=== PATIENT | male | born 1980 | race American Indian/Alaskan Native ===

== ENCOUNTER 2018-10-26 18:23 | Emergency (ER) | payer OTHER ==
[2018-10-26 18:58] LABS: Absolute Lymphocytes (CBC) 3.4 K/uL (0.7-4.9); Basophils % 0.5 % (0-1.3); Eosinophils % 4.1 % (0-4.4); Hematocrit 50.4 % (39.6-49.0); Lymphocytes % 36.6 % (15.3-44.8); Monocytes % 6.8 % (3.3-12.3); RBC Red Blood Cell Count 6.01 M/uL (4.33-5.43)
[2018-10-26 19:06] LABS: Protime INR 0.94
--- NOTE | 2018-10-26 19:12 | RAD REPORT ---
EXAM DESCRIPTION: RAD - Chest Single View - 10/26/2018 6:50 pm CLINICAL HISTORY: CHEST PAIN Chest pain. COMPARISON: No comparisons FINDINGS: Portable technique limits examination quality. The lungs are underinflated but grossly clear. The heart is normal in size. No displaced fractures. IMPRESSION: Underinflated lungs.
[2018-10-26 19:14] LABS: Albumin 3.8 g/dL (3.4-5.0); Bilirubin Direct 0.1 mg/dL (0-0.2); Bilirubin Total 0.4 mg/dL (0.2-1.0); Magnesium 2.3 mg/dL (1.8-2.4); Potassium 3.6 mmol/L (3.5-5.1)
[2018-10-26] MEDS ORDERED: NA CHLORIDE 0.9% 1,000 ML ONE ×2 (19:41→23:11)
[2018-10-26] MEDS ORDERED: SUCRALFATE 1 GM TABLET ONE (19:47)
[2018-10-26] MEDS ORDERED: PANTOPRAZOLE 40 MG INJ ONE (19:48)
[2018-10-26] MEDS ORDERED: MORPHINE 4 MG/ML SYR ONE (23:11)
[2018-10-26] MEDS ORDERED: ONDANSETRON 4 MG/2 ML VIAL ONE (23:11)
--- NOTE | 2018-10-27 00:08 | ER ---
Nurse's Notes [facility] Name: Enrrique Sahni Age: 38 yrs Sex: Male : 1980 Arrival Date: 10/26/2018 Time: 18:25 Bed 17 Private MD: Diagnosis: Chest pain, unspecified Presentation: 10/26 18:25 Presenting complaint: Patient states: "Pain behind chest" since last night, pain is la1 sharp, non-radiating, hurts much worse with breathing and laying down. Transition of care: patient was not received from another setting of care. Onset of symptoms was October 26, 2018. Risk Assessment: Do you want to hurt yourself or someone else? Patient reports no desire to harm self or others. Initial Sepsis Screen: Does the patient meet any 2 criteria? No. Patient's initial sepsis screen is negative. Does the patient have a suspected source of infection? No. Patient's initial sepsis screen is negative. Care prior to arrival: None. 18:25 Method Of Arrival: Ambulatory la1 18:25 Acuity: ADEN 3 la1 Historical: - Allergies: 18:26 No Known Allergies; la1 - Home Meds: 18:26 atorvastatin 20 mg oral tab 1 tab once daily [Active]; Omeprazole Oral [Active]; la1 - PMHx: 18:26 High Cholesterol; GERD; la1 - PSHx: 18:26 None; la1 - Immunization history:: Adult Immunizations up to date. - Social history:: Smoking status: Patient/guardian denies using tobacco. - Ebola Screening: : No symptoms or risks identified at this time. Screenin:36 Abuse screen: Denies threats or abuse. Denies injuries from another. Nutritional aj screening: No deficits noted. Tuberculosis screening: No symptoms or risk factors identified. Fall Risk None identified. Assessment: 18:36 General: Appears in no apparent distress. comfortable, Behavior is cooperative, aj appropriate for age, anxious. Pain: Complains of pain in diaphragm, xyphoid area and left breast. Neuro: Level of Consciousness is awake, alert, obeys commands, Oriented to person, place, time, situation, Appropriate for age. Cardiovascular: Reports chest pain, Capillary refill < 3 seconds in bilateral fingers Patient's skin is warm and dry. Rhythm is regular. Respiratory: Airway is patent Respiratory effort is even, unlabored, Respiratory pattern is regular, symmetrical. Derm: Skin is intact, is healthy with good turgor, Skin is pink, warm \\T\\ dry. normal. 19:36 Reassessment: Patient appears in no apparent distress at this time. No changes from aj previously documented assessment. Patient and/or family updated on plan of care and expected duration. Pain level reassessed. Patient is alert, oriented x 3, equal unlabored respirations, skin warm/dry/pink. Patient reports pain continues. Provider notified and new orders given. 20:42 Reassessment: Patient appears in no apparent distress at this time. Patient is alert, ca1 oriented x 3, equal unlabored respirations, skin warm/dry/pink. For repeat Trop and EKG at 2130. 21:59 Reassessment: Patient appears in no apparent distress at this time. Patient and/or ca1 family updated on plan of care and expected duration. Pain level reassessed. Patient is alert, oriented x 3, equal unlabored respirations, skin warm/dry/pink. Rpt trop and EKG done. 22:50 Reassessment: Patient appears in no apparent distress at this time. Patient and/or ca1 family updated on plan of care and expected duration. Pain level reassessed. Patient is alert, oriented x 3, equal unlabored respirations, skin warm/dry/pink. 23:55 Reassessment: Patient appears in no apparent distress at this time. Patient is alert, ca1 oriented x 3, equal unlabored respirations, skin warm/dry/pink. 10/27 01:25 Reassessment: Patient appears in no apparent distress at this time. Patient is alert, ca1 oriented x 3, equal unlabored respirations, skin warm/dry/pink. 01:30 Reassessment: Patient appears in no apparent distress at this time. Patient and/or cc3 family updated on plan of care and expected duration. Pain level reassessed. Patient is alert, oriented x 3, equal unlabored respirations, skin warm/dry/pink. Received this male patient from ALENA Flower as a case of chest pain for admission, now patient doesn't complain of any pain. Patient on ER hold so charting continued in [facility]. With IV cannula gauge 20 at the right ACV with ongoing IVF of NS 1L at 125 mL/hr infusing well. Patient denies pain at this time. General: Appears in no apparent distress. comfortable, Behavior is calm, cooperative, appropriate for age. Pain: Denies pain. Neuro: Level of Consciousness is awake, alert, obeys commands, Oriented to person, place, time, situation, Appropriate for age. Cardiovascular: Capillary refill < 3 seconds Patient's skin is warm and dry. Rhythm is sinus rhythm. Respiratory: Airway is patent Respiratory effort is even, unlabored, Respiratory pattern is regular, symmetrical. GI: Abdomen is round non-distended. : No signs and/or symptoms were reported regarding the genitourinary system. EENT: No signs and/or symptoms were reported regarding the EENT system. Derm: Skin is intact, is healthy with good turgor, Skin is pink, warm \\T\\ dry. normal. Musculoskeletal: Circulation, motion, and sensation intact. Range of motion: intact in all extremities. Vital Signs: 10/26 18:26 BP 111 / 81; Pulse 71; Resp 16; Temp 97.2; Pulse Ox 98% on R/A; Weight 78.47 kg; Height la1 5 ft. 11 in. (180.34 cm); Pain 7/10; 19:36 BP 117 / 88; Pulse 71; Resp 20; Pulse Ox 99% on R/A; aj 20:15 BP 114 / 85; Pulse 68; Resp 19 S; Pulse Ox 100% on R/A; ca1 21:15 BP 113 / 85; Pulse 73; Resp 18 S; Pulse Ox 96% on R/A; ca1 22:08 BP 117 / 88; Pulse 71; Resp 18 S; Pulse Ox 99% on R/A; ca1 23:01 BP 121 / 81; Pulse 68; Resp 17 S; Pulse Ox 100% on R/A; ca1 10/27 00:13 BP 123 / 85; Pulse 71; Resp 18 S; Temp 97.5(O); Pulse Ox 100% ; ca1 01:15 BP 112 / 87; Pulse 61; Resp 16 S; Pulse Ox 96% on R/A; ca1 10/26 18:26 Body Mass Index 24.13 (78.47 kg, 180.34 cm) la1 ED Course: 10/26 18:25 Patient arrived in ED. mr 18:26 Triage completed. la1 18:27 Arm band placed on right wrist. la1 18:29 [facility]C [facility] snw 18:29 Mendy Romero MD is Attending Physician. snw 18:34 EKG done, by ED staff, reviewed by Mariam PEÑA. dh3 18:36 Randi Youssef, ALENA is Primary Nurse. aj 18:36 Patient has correct armband on for positive identification. Placed in gown. Bed in low aj position. Call light in reach. Side rails up X 1. Adult w/ patient. cardiac monitor on. Pulse ox on. NIBP on. 18:44 Initial lab(s) drawn, by me, sent to lab. Inserted saline lock: 20 gauge in right lt1 antecubital area, using aseptic technique. 18:50 XRAY Chest (1 view) In Process Unspecified. EDMS 19:19 Basic Metabolic Panel Sent. aj 19:19 CBC with Diff Sent. aj 21:56 Troponin (emerg Dept Use Only) Sent. lt1 10/27 00:05 Mendy Vargas MD is Hospitalizing Provider. snw 00:14 No provider procedures requiring assistance completed. Patient admitted, IV remains in ca1 place. 01:26 Report given to Shayy Antony RN. ca1 07:21 Electronic Warfare Officer consult called into the answering service as requested by Dr. Hartmann . eb Administered Medications: 10/26 19:35 Drug: CarafATE 1 grams Route: PO; aj 23:08 Follow up: Response: No adverse reaction ca1 19:35 Drug: ProTONIX 40 mg Route: IVP; Site: right antecubital; aj 23:08 Follow up: Response: No adverse reaction ca1 19:36 Drug: NS 0.9% 1000 ml Route: IV; Rate: 1000 ml; Site: right antecubital; aj 20:36 Follow up: Response: No adverse reaction; IV Status: Completed infusion ca1 22:55 Drug: NS 0.9% 1000 ml Route: IV; Rate: 125 ml/hr; Site: right antecubital; ca1 10/27 00:10 Follow up: IV Status: Infusion continued upon admission ca1 10/26 22:56 Drug: Zofran 4 mg Route: IVP; Site: right antecubital; ca1 10/27 00:08 Follow up: Response: No adverse reaction ca1 07/06 22:59 Drug: morphine 4 mg Route: IVP; Site: right antecubital; ca1 10/27 00:09 Follow up: Response: No adverse reaction ca1 Outcome: 00:05 Decision to Hospitalize by Provider. snw 11:46 Patient left the ED. iw Signatures: Dispatcher [employer] EDRandi Corona, RN RN Mariam Beatty, COLLAR RUNNER-C COLLAR RUNNER-Csnw Linsey Fitzgerald Camille Gill, RN ALENA Saurabh Orlando RN RN la1 Leyla Garcia 3 Kim Nieto Charlene 3 Ching Jenkins RN RN ca1 Rodriguez, Pooja lt1 Corrections: (The following items were deleted from the chart) 10/26 22:00 21:59 Reassessment: Patient appears in no apparent distress at this time. Patient ca1 and/or family updated on plan of care and expected duration. Pain level reassessed. Patient is alert, oriented x 3, equal unlabored respirations, skin warm/dry/pink. ca1 10/27 00:11 00:10 Response: No adverse reaction; IV Status: Completed infusion ca1 ca1 01:26 01:15 BP 112 / 87; Pulse 61bpm; Resp 16bpm; Pulse Ox 96% RA; ca1 ca1
--- NOTE | 2018-10-27 00:09 | EDPHYS ---
Physician Documentation [facility] Name: Enrrique Sahni Age: 38 yrs Sex: Male : 1980 Arrival Date: 10/26/2018 Time: 18:25 Bed 17 Private MD: ED Physician Mendy Romero HPI: 10/26 18:53 This 38 yrs old Male presents to ER via Ambulatory with complaints of snw Chest Pain. 18:53 Onset: The symptoms/episode began/occurred suddenly, 1 day(s) ago, and became snw persistent. Associated signs and symptoms: The patient has no apparent associated signs or symptoms. The patient has not experienced similar symptoms in the past. sees Dr. Parada in [facility]. Father with early heart disease. Historical: - Allergies: 18:26 No Known Allergies; la1 - Home Meds: 18:26 atorvastatin 20 mg oral tab 1 tab once daily [Active]; Omeprazole Oral [Active]; la1 - PMHx: 18:26 High Cholesterol; GERD; la1 - PSHx: 18:26 None; la1 - Immunization history:: Adult Immunizations up to date. - Social history:: Smoking status: Patient/guardian denies using tobacco. - Ebola Screening: : No symptoms or risks identified at this time. ROS: 18:51 Constitutional: Negative for fever, chills, and weight loss, Eyes: Negative for injury, snw pain, redness, and discharge, ENT: Negative for injury, pain, and discharge, Neck: Negative for injury, pain, and swelling, Respiratory: Negative for shortness of breath, cough, wheezing, and pleuritic chest pain, Abdomen/GI: Negative for abdominal pain, nausea, vomiting, diarrhea, and constipation, Back: Negative for injury and pain, : Negative for injury, bleeding, discharge, and swelling, MS/Extremity: Negative for injury and deformity, Skin: Negative for injury, rash, and discoloration, Neuro: Negative for headache, weakness, numbness, tingling, and seizure, Psych: Negative for depression, anxiety, suicide ideation, homicidal ideation, and hallucinations. 18:51 Cardiovascular: Positive for chest pain, of the left breast. Exam: 18:51 Constitutional: This is a well developed, well nourished patient who is awake, alert, snw and anxious Head/Face: Normocephalic, atraumatic. Eyes: Pupils equal round and reactive to light, extra-ocular motions intact. Lids and lashes normal. Conjunctiva and sclera are non-icteric and not injected. Cornea within normal limits. Periorbital areas with no swelling, redness, or edema. ENT: Nares patent. No nasal discharge, no septal abnormalities noted. Tympanic membranes are normal and external auditory canals are clear. Oropharynx with no redness, swelling, or masses, exudates, or evidence of obstruction, uvula midline. Mucous membranes moist. Neck: Trachea midline, no thyromegaly or masses palpated, and no cervical lymphadenopathy. Supple, full range of motion without nuchal rigidity, or vertebral point tenderness. No Meningismus. Chest/axilla: Normal chest wall appearance and motion. Nontender with no deformity. No lesions are appreciated. Cardiovascular: Regular rate and rhythm with a normal S1 and S2. No gallops, murmurs, or rubs. Normal PMI, no JVD. No pulse deficits. Respiratory: Lungs have equal breath sounds bilaterally, clear to auscultation and percussion. No rales, rhonchi or wheezes noted. No increased work of breathing, no retractions or nasal flaring. Back: No spinal tenderness. No costovertebral tenderness. Full range of motion. Skin: Warm, dry with normal turgor. Normal color with no rashes, no lesions, and no evidence of cellulitis. MS/ Extremity: Pulses equal, no cyanosis. Neurovascular intact. Full, normal range of motion. Neuro: Awake and alert, GCS 15, oriented to person, place, time, and situation. Cranial nerves II-XII grossly intact. Motor strength 5/5 in all extremities. Sensory grossly intact. Cerebellar exam normal. Normal gait. Psych: Awake, alert, with orientation to person, place and time. Behavior, mood, and affect are within normal limits. 18:51 Abdomen/GI: Inspection: abdomen appears normal, Bowel sounds: hyperactive, in all quadrants, Palpation: abdomen is soft and non-tender. Vital Signs: 18:26 BP 111 / 81; Pulse 71; Resp 16; Temp 97.2; Pulse Ox 98% on R/A; Weight 78.47 kg; Height la1 5 ft. 11 in. (180.34 cm); Pain 7/10; 19:36 BP 117 / 88; Pulse 71; Resp 20; Pulse Ox 99% on R/A; aj 20:15 BP 114 / 85; Pulse 68; Resp 19 S; Pulse Ox 100% on R/A; ca1 21:15 BP 113 / 85; Pulse 73; Resp 18 S; Pulse Ox 96% on R/A; ca1 22:08 BP 117 / 88; Pulse 71; Resp 18 S; Pulse Ox 99% on R/A; ca1 23:01 BP 121 / 81; Pulse 68; Resp 17 S; Pulse Ox 100% on R/A; ca1 10/27 00:13 BP 123 / 85; Pulse 71; Resp 18 S; Temp 97.5(O); Pulse Ox 100% ; ca1 01:15 BP 112 / 87; Pulse 61; Resp 16 S; Pulse Ox 96% on R/A; ca1 10/26 18:26 Body Mass Index 24.13 (78.47 kg, 180.34 cm) la1 MDM: 10/26 18:33 Patient medically screened. snw 10/27 00:06 Data reviewed: vital signs, nurses notes. Data interpreted: Pulse oximetry: on room air snw is 99 %. Interpretation: normal. Counseling: I had a detailed discussion with the patient and/or guardian regarding: the historical points, exam findings, and any diagnostic results supporting the discharge/admit diagnosis, lab results, radiology results, the need for further work-up and treatment in the hospital. Physician consultation: Mendy Vargas MD was called at 00:06, was contacted at 00:06, regarding admission, to the telemetry unit. 00:19 Medication response: continued pain at 2100, repeat cardiac enzymes, EKG negative. Pt snw continues with pain per report. Morphine given at 2300. Pt with continued report of pain. Dr. Vargas called at [phone] for admission for obs.. 10/26 18:29 Order name: Basic Metabolic Panel; Complete Time: 19:19 snw 10/26 18:29 Order name: CBC with Diff; Complete Time: 19:19 snw 10/26 18:29 Order name: LFT's; Complete Time: 19:18 snw 10/26 18:29 Order name: Magnesium; Complete Time: 19:18 snw 10/26 18:29 Order name: NT PRO-BNP; Complete Time: 19:18 snw 10/26 18:29 Order name: PT-INR; Complete Time: 19:07 snw 10/26 18:29 Order name: Troponin (emerg Dept Use Only); Complete Time: 19:18 snw 10/26 18:29 Order name: XRAY Chest (1 view); Complete Time: 19:18 snw 10/26 18:29 Order name: DD; Complete Time: 19:07 snw 10/26 18:30 Order name: Basic Metabolic Panel; Complete Time: 19:18 EDMS 10/26 18:31 Order name: CBC with Automated Diff; Complete Time: 19:05 EDMS 10/26 21:39 Order name: Troponin (emerg Dept Use Only); Complete Time: 22:22 lt1 10/27 06:34 Order name: Troponin I; Complete Time: 15:43 EDMS 10/27 06:34 Order name: Lipid Profile; Complete Time: 15:43 EDMS 10/26 18:29 Order name: EKG; Complete Time: 18:32 snw 10/26 18:29 Order name: Cardiac monitoring; Complete Time: 18:46 snw 10/26 18:29 Order name: EKG - Nurse/Tech; Complete Time: 18:39 snw 10/26 18:29 Order name: IV Saline Lock; Complete Time: 18:45 snw 10/26 18:29 Order name: Labs collected and sent; Complete Time: 18:45 snw 10/26 18:29 Order name: O2 Per Protocol; Complete Time: 18:45 snw 10/26 18:29 Order name: O2 Sat Monitoring; Complete Time: 18:45 snw 10/26 19:20 Order name: Repeat Cardiac Enzymes at: 2130; Complete Time: 21:56 snw 10/26 19:20 Order name: EKG: at 2130; Complete Time: 19:24 snw Administered Medications: 10/26 19:35 Drug: CarafATE 1 grams Route: PO; aj 23:08 Follow up: Response: No adverse reaction ca1 19:35 Drug: ProTONIX 40 mg Route: IVP; Site: right antecubital; aj 23:08 Follow up: Response: No adverse reaction ca1 19:36 Drug: NS 0.9% 1000 ml Route: IV; Rate: 1000 ml; Site: right antecubital; aj 20:36 Follow up: Response: No adverse reaction; IV Status: Completed infusion ca1 22:55 Drug: NS 0.9% 1000 ml Route: IV; Rate: 125 ml/hr; Site: right antecubital; ca1 10/27 00:10 Follow up: IV Status: Infusion continued upon admission ca1 10/26 22:56 Drug: Zofran 4 mg Route: IVP; Site: right antecubital; ca1 10/27 00:08 Follow up: Response: No adverse reaction ca1 10/26 22:59 Drug: morphine 4 mg Route: IVP; Site: right antecubital; ca1 10/27 00:09 Follow up: Response: No adverse reaction ca1 Disposition: 10/27/18 00:05 Hospitalization ordered by Mendy Vargas for Observation. Preliminary diagnosis is Chest pain, unspecified. - Bed requested for [facility] ER HOLD. - Status is Observation. iw - Condition is Stable. - Problem is new. - Symptoms are unchanged. UTI on Admission? No Addendum: 10/31/2018 02:10 Co-signature as Attending Physician, Mendy Romero MD. m a2 Signatures: Dispatcher [employer] EDMS Josseline Jeronimo RN Randi Mcarthur RN Mariam Johnson, PRINTING MACHINE OPERATOR-C PRINTING MACHINE OPERATOR-Csnw Camille Gill RN RN iw Saurabh Orlando RN RN la1 Mendy Romero MD MD ma2 Ching Jenkins RN RN ca1 Corrections: (The following items were deleted from the chart) 10/27 00:25 00:05 Hospitalization Ordered by Mendy Vargas MD for Observation. Preliminary mw diagnosis is Chest pain, unspecified. Bed requested for Telemetry/MedSurg (observation). Status is Observation. Condition is Stable. Problem is new. Symptoms are unchanged. UTI on Admission? No. snw 11:46 00:25 10/27/2018 00:05 Hospitalization Ordered by Mendy Vargas MD for Observation. iw Preliminary diagnosis is Chest pain, unspecified. Bed requested for [facility] ER HOLD. Status is Observation. Condition is Stable. Problem is new. Symptoms are unchanged. UTI on Admission? No. mw
[2018-10-27] MEDS ORDERED: MORPHINE 4 MG/ML SYR IV PRN (00:58)
[2018-10-27] MEDS ORDERED: ALPRAZOLAM 0.25 MG TABLET PO PRN (00:58)
[2018-10-27] MEDS ORDERED: ACETAMINOPHEN 500 MG TAB PO PRN (00:58)
[2018-10-27 04:03] VITALS: BMI 24.1
[2018-10-27 04:34] VITALS: O2SAT 99
[2018-10-27 04:37] VITALS: TEMP 97.6
[2018-10-27] MEDS ORDERED: METOPROLOL TAR 50 MG TAB PO SCH (06:00)
[2018-10-27 06:04] VITALS: BP 105/83
[2018-10-27] MEDS ORDERED: METOPROLOL TAR 25 MG TAB ONE (06:22)
[2018-10-27 06:34] LABS: HDL Cholesterol 30 mg/dL (40-60); LDL Cholesterol, Calculated 21 (<130); Troponin I < 0.02 ng/mL (0.0-0.045)
--- NOTE | 2018-10-27 08:43 | EKG ---
Test Date: 2018-10-26 Test Time: 21:45:17 Sr. Logistics Analyst: LMT MEASUREMENT RESULTS: Intervals: Rate: 69 MI: 132 QRSD: 90 QT: 384 QTc: 411 [place]: P: 24 MI: 132 QRS: 54 T: 54 INTERPRETIVE STATEMENTS: Normal sinus rhythm Normal ECG Compared to ECG 10/26/2018 18:34:21 No significant changes Electronically Signed On 10-27-18 08:41:15 CDT by Chet Alvarez
--- NOTE | 2018-10-27 08:44 | EKG ---
Test Date: 2018-10-26 Test Time: 18:34:21 Cherry Pitter: REYES MEASUREMENT RESULTS: Intervals: Rate: 72 WI: 148 QRSD: 92 QT: 380 QTc: 416 [place]: P: 46 WI: 148 QRS: 57 T: 53 INTERPRETIVE STATEMENTS: Normal sinus rhythm Possible Left atrial enlargement Borderline ECG No previous ECG available for comparison Electronically Signed On 10-27-18 08:42:21 CDT by Chet Alvarez
[2018-10-27] MEDS ORDERED: ASPIRIN 325 MG TAB ONE (08:59)
[2018-10-27] MEDS ORDERED: ENOXAPARIN 40 MG/0.4 ML SQ ONE (09:00)
[2018-10-27] MEDS ORDERED: ASPIRIN 325 MG TAB PO SCH (09:00)
[2018-10-27] MEDS ORDERED: ENOXAPARIN 40 MG/0.4 ML SQ SCH (09:00)
--- NOTE | 2018-10-27 10:12 | P.DS ---
Admission Date: 10/27/18 Discharge Date: 10/27/18 Primary Care Provider: None(From [place], [place]) Disposition: ROUTINE DISCHARGE Discharge Condition: GOOD Reason for Admission: Chest pain Consultations: Cardiology-Dr. Alvarez Procedures: Chest x-ray: Underinflated lungs otherwise unremarkable Medical problem list: Chest pain, atypical, likely pleuritic in nature Mixed hyperlipidemia GERD Brief History of Present Illness: 38-year-old [place] male presented to the emergency room with chest pain. Patient with recent travel. Patient was admitted for further observation. Initial cardiac enzymes unremarkable. No significant EKG changes noted. Hospital Course: Patient presented with chest pain. Cardiac enzymes x3 unremarkable. No significant EKG changes noted. Patient seen and evaluated by Cardiology. No cardiac intervention required at this time. Cardiology recommends discharge and for the patient to follow up as an outpatient within 1-2 weeks. Patient will require cardiac stress test and echocardiogram as an outpatient. Patient may follow up with cardiology to further address. Cardiology suspects pleuritic chest pain. Patient may take ibuprofen 400 mg 3 times a day as needed for pain. Patient may continue with his aspirin 81 mg daily. Will provide incentive spirometer. Patient with hyperlipidemia. Patient takes Lipitor at home. Lipid panel reviewed. Triglycerides slightly elevated. Recommend [place] [employer] diet. Recommend fish oil 1000 mg twice daily. Patient may continue with Lipitor 20 mg daily. Recommend repeat lab in 4-6 weeks to monitor his progress. Patient with history of GERD. Patient may continue with Prilosec 40 mg daily. Vital Signs/Physical Exam: Temp Pulse Resp BP Pulse Ox 97.6 F 75 18 105/83 100 10/27/18 04:00 10/27/18 06:02 10/27/18 06:02 10/27/18 06:02 10/27/18 06:02 General: Alert, In no apparent distress, Oriented x3, Cooperative HEENT: Atraumatic Neck: Supple Respiratory: Clear to auscultation bilaterally, Normal air movement Cardiovascular: Normal pulses, Regular rate/rhythm Gastrointestinal: Normal bowel sounds, Soft and benign, Non-distended, No tenderness, No masses, No rebound, No guarding Musculoskeletal: No erythema, No tenderness, No warmth Neurological: Normal speech, Normal strength at 5/5 x4 extr, Normal tone, Normal affect Laboratory Data at Discharge: WBC 9.3 K/uL (4.3-10.9) 10/26/18 18:43 Hgb 17.0 g/dL (13.6-17.9) 10/26/18 18:43 Hct 50.4 % (39.6-49.0) H 10/26/18 18:43 Plt Count 206 K/uL (152-406) 10/26/18 18:43 PT 11.1 SECONDS (9.5-12.5) 10/26/18 18:43 INR 0.94 10/26/18 18:43 Sodium 139 mmol/L (136-145) 10/26/18 18:43 Potassium 3.6 mmol/L (3.5-5.1) 10/26/18 18:43 BUN 14 mg/dL (7-18) 10/26/18 18:43 Creatinine 1.04 mg/dL (0.55-1.3) 10/26/18 18:43 Glucose 119 mg/dL (74-106) H 10/26/18 18:43 Magnesium 2.3 mg/dL (1.8-2.4) 10/26/18 18:43 Total Bilirubin 0.4 mg/dL (0.2-1.0) 10/26/18 18:43 AST 19 U/L (15-37) 10/26/18 18:43 ALT 38 U/L (12-78) 10/26/18 18:43 Alkaline Phosphatase 52 U/L (45-117) 10/26/18 18:43 Troponin I < 0.02 ng/mL (0.0-0.045) 10/27/18 06:00 Triglycerides 395 mg/dL (<150) H 10/27/18 06:00 Cholesterol 130 mg/dL (<200) 10/27/18 06:00 HDL Cholesterol 30 mg/dL (40-60) L 10/27/18 06:00 Cholesterol/HDL Ratio 4.33 10/27/18 06:00 Home Medications: Aspirin [Adult Aspirin Regimen] 81 mg PO DAILY 10/27/18 Atorvastatin Calcium 20 mg PO DAILY 10/27/18 Docosahexanoic AC/Epa [Fish Oil 1,000 MG CAP] 1 cap PO BID #60 cap 10/27/18 Omeprazole [Prilosec] 40 mg PO DAILY 10/27/18 New Medications: Docosahexanoic AC/Epa [Fish Oil 1,000 MG CAP] 1 cap PO BID #60 cap Patient Discharge Instructions: 1. Recommend follow up with his PCP in 1 week. 2. Patient presented with chest pain. Cardiac enzymes x3 unremarkable. No significant EKG changes noted. Patient seen and evaluated by Cardiology. No cardiac intervention required at this time. Cardiology recommends discharge and for the patient to follow up as an outpatient within 1-2 weeks. Patient will require cardiac stress test and echocardiogram as an outpatient. Patient may follow up with cardiology to further address. Cardiology suspects pleuritic chest pain. Patient may take ibuprofen 400 mg 3 times a day as needed for pain. Patient may continue with his aspirin 81 mg daily. Will provide incentive spirometer. 3. Patient with hyperlipidemia. Patient takes Lipitor at home. Lipid panel reviewed. Triglycerides slightly elevated. Recommend [place] [employer] diet. Recommend fish oil 1000 mg twice daily. Patient may continue with Lipitor 20 mg daily. Recommend repeat lab in 4-6 weeks to monitor his progress. 4. Patient with history of GERD. Patient may continue with Prilosec 40 mg daily. Diet: AHA Activity: Ad marzena Time spent managing pt's care (in minutes): 55
--- NOTE | 2018-10-27 15:42 | CON ---
Date of Consultation: 10/27/2018 The patient was admitted to Dr. Hartmann's service on 10/27/2018. I saw the patient on 10/27/2018. Reason For Consultation: Chest pain. History Of Present Illness: The patient is a 38-year-old male without any past cardiac histor y. He has a history of dyslipidemia and gastroesophageal reflux disease. His dad at 49 from coronary artery disease. Apparently since last , which is about 3-4 days ago, he has be en having a chest pain over the left lateral wall of his chest, typically with inspiration. It got m uch worse yesterday when he took a deep breath and would drive into [place] and decided to com e to the emergency room for evaluation. His pain was nonexertional. It did not radiate. It was not associated with nausea, vomiting, diaphoresis, PND, orthopnea, pedal edema, palpitations, or syncope . He denied any trauma. Denied any fever or chills. By the time I saw him, he has already ruled ou t for an OK. Past Medical History: As stated above. Allergies: NONE. Review of Systems: Negative. Social History: Negative for tobacco. Family History: Positive for heart disease. Medications: At home include aspirin, Lipitor, and Prilosec. Physical Examination: General: He appeared to be anxious but in no acute distress. Vital Signs: Stable. He was afebrile. He was in a sinus rhythm. HEENT: Negative. Neck: Supple without any bruit, lymphadenopathy, JVD, or thyromegaly. Chest: Clear to auscultation and percussion. Cardiac: Revealed a regular rhythm and rate. No murmurs, gallops, or rubs. Abdomen: Benign. Extremities: Revealed no clubbing, cyanosis, or edema. Diagnostic Data: His EKG was normal. Chest x-ray was normal. Troponin is negative. His triglyceri de was 395, HDL was 30, LDL could not be calculated. His cholesterol was 130. Impression And Plan: This is a gentleman with dyslipidemia that is significant, strong family histor y of heart disease, gastroesophageal reflux disease. He has symptoms that sounds more pleuritic than cardiac in nature. He has ruled out for an OK. His EKG, chest x-ray, and labs were normal otherwis e. I feel comfortable with him going home today. Because of his chest pain, dyslipidemia, and famil y history that is pretty strong, I recommend we do an echocardiogram and a stress test as an outpatie nt. I will make arrangements for that. The case was discussed with Dr. Hartmann. The patient underst ands the plans. Nonsteroidal anti-inflammatory agent may be appropriate for his pleurisy at this poi nt. ETTA/RAN Voice ID: [id number] Report ID: [id number]
[2018-10-27] MEDS ORDERED: ATORVASTATIN 40 MG TAB PO SCH (21:00)
== END 2018-10-27 11:46 | disposition home or self-care (01) ==
LOC: ER 18:23 → ERHOLD 10-27 00:25 → UNDOADMOB 10-27 00:25 → ER 10-27 11:46
DX: R07.9 Chest pain, unspecified (principal); E78.5 Hyperlipidemia, unspecified; K21.9 Gastro-esophageal reflux disease without esophagitis
CPT/HCPCS: 36415; 71045; 80048; 80076; 83735; 83880; 84484; 85025; 85379; 85610; 93005; 96361; 96374; 96375; 99284; C9113; J2405; J7030

== ENCOUNTER 2019-09-17 17:02 | Observation (INO) | payer OTHER, SELFPAY ==
[2019-09-17] MEDS ORDERED: KETOROLAC 30 MG/ML INJ ONE (18:39)
[2019-09-17 19:17] LABS: ALT/SGPT 48 U/L (12-78); AST/SGOT 22 U/L (15-37); Absolute Lymphocytes (CBC) 2.9 K/uL (0.7-4.9); Alkaline Phosphatase 55 U/L (45-117); BUN Blood Urea Nitrogen 16 mg/dL (7-18); Basophils % 0.3 % (0-1.3); Bicarbonate 30 mmol/L (21-32); Bilirubin Direct < 0.1 mg/dL (0-0.2); Bilirubin Total 0.4 mg/dL (0.2-1.0); Glucose Level 95 mg/dL (74-106); Hematocrit 51.4 % (39.6-49.0); Lymphocytes % 18.6 % (15.3-44.8); MPV 10.2 fL (7.6-11.3); Magnesium 2.2 mg/dL (1.8-2.4); NT PRO-BNP 14 pg/mL (<125); Protein, Total 7.5 g/dL (6.4-8.2); RBC Red Blood Cell Count 6.07 M/uL (4.33-5.43); Sodium Level 139 mmol/L (136-145); Troponin (Emerg Dept Use Only) < 0.02 ng/mL (0.0-0.045)
[2019-09-17 19:19] LABS: Protime INR 0.99
--- NOTE | 2019-09-17 19:52 | RAD REPORT ---
EXAM DESCRIPTION: RAD - Chest Single View - 09/17/2019 7:17 pm CLINICAL HISTORY: CHEST PAIN COMPARISON: Portable October 2018 TECHNIQUE: AP portable chest image was obtained 09/17/2019 7:17 pm . FINDINGS: Lung volumes are low. Hazy lung parenchymal opacities are present which could be low lung volume atelectasis. No dense consolidation. Elevated left hemidiaphragm again noted. Heart and vascul ature are normal. No measurable pleural effusion and no pneumothorax. No acute bony abnormality seen. No acute aortic findings suspected. IMPRESSION: No dense consolidation or mass. Mild prominence of the lung parenchyma and central vasculature may all be volume related. Minimal inf iltrate or edema changes are possible.
[2019-09-17] MEDS ORDERED: ASPIRIN 81 MG CHEWABLE TABLET ONE (21:25)
--- NOTE | 2019-09-17 21:44 | P.HP ---
Certification for Inpatient Patient admitted to: Observation With expected LOS: <2 Midnights Practitioner: I am a practitioner with admitting privileges, knowledge of patient current condition, hospital course, and medical plan of care. Services: Services provided to patient in accordance with Admission requirements found in Title 42 Section 412.3 of the Code of Federal Regulations Patient History Date of Service: 09/17/19 Reason for admission: Chest pain History of Present Illness: 39-year-old gentleman with a history of acid reflux and hyperlipidemia presented emergency department with a complaint of chest pain of onset yesterday. Patient described intermittent chest pain, located in the sternal area, nonradiating, not related to exertion, worse with leaning forward, no relieving factors, associated with palpitation. Patient denies any cough or shortness of breath. His EKG in the emergency department demonstrated sinus tachycardia. Initial troponin is negative. Chest x-ray demonstrate a hazy appearance which could be secondary to atelectasis. The patient has a significant family history of coronary artery disease. His dad from a heart attack at the age of 49. He was here 1 year ago for chest pain, had a stress test and echocardiogram done as an outpatient which per patient were reported as normal. He states he has been diagnosed obstructive sleep apnea and uses CPAP during sleep. Allergies No Known Allergies Allergy (Unverified 10/27/18 01:44) Home Medications: Aspirin [Adult Aspirin Regimen] 81 mg PO DAILY 10/27/18 Atorvastatin Calcium 20 mg PO DAILY 10/27/18 - Past Medical/Surgical History Diabetic: No -: hyperlipidemia -: acid reflux -: Obstructive sleep apnea -: None - Family History Father -: Heart disease Notes: of heart attack Mother Notes: hyperlipidemia - Social History Smoking Status: Never smoker Alcohol use: No CD- Drugs: No Caffeine use: No Review of Systems Other: Except as documented, all other systems reviewed and negative. Physical Examination - Physical Exam General: Alert, In no apparent distress, Oriented x3 HEENT: Mucous membr. moist/pink, Sclerae nonicteric Neck: Supple, JVD not distended Respiratory: Clear to auscultation bilaterally, Normal air movement Cardiovascular: No edema, Regular rate/rhythm, Normal S1 S2, No murmurs Capillary refill: <2 Seconds Gastrointestinal: Normal bowel sounds, Soft and benign, Non-distended, No tenderness Musculoskeletal: No swelling, No erythema Integumentary: No rashes Neurological: Normal speech, Normal strength at 5/5 x4 extr - Studies Laboratory Data (last 24 hrs) 09/17/19 18:40: PT 11.7, INR 0.99 09/17/19 18:40: WBC 15.6 H, Hgb 17.3, Hct 51.4 H, Plt Count 206 09/17/19 18:40: Sodium 139, Potassium 4.0, BUN 16, Creatinine 1.18, Glucose 95, Magnesium 2.2, Total Bilirubin 0.4, AST 22, ALT 48, Alkaline Phosphatase 55 Assessment and Plan - Problems (Diagnosis) (1) Chest pain Current Visit: Yes Status: Acute (2) Sinus tachycardia Current Visit: Yes Status: Acute - Plan Place under observation. Telemetry Trend troponin. Obtain EKG Beta-serjio, aspirin, lipitor. NTG p.r.n. - Advance Directives Does patient have a Living Will: No Does patient have a Durable POA for Healthcare: No
[2019-09-17 22:45] VITALS: BMI 25.5
[2019-09-17] MEDS ORDERED: NITROGLYCERIN 0.4 MG/TAB SL PRN (22:59)
[2019-09-17 23:43] LABS: HDL Cholesterol 29 mg/dL (40-60); LDL Cholesterol, Calculated 51 (<130); Troponin I < 0.02 ng/mL (0.0-0.045)
[2019-09-18 04:45] VITALS: O2SAT 98
[2019-09-18 07:34] LABS: Potassium 3.8 mmol/L (3.5-5.1)
[2019-09-18] MEDS ORDERED: ENOXAPARIN 40 MG/0.4 ML SQ SCH (09:00)
[2019-09-18] MEDS ORDERED: ASPIRIN EC 81 MG TAB PO SCH (09:00)
[2019-09-18] MEDS ORDERED: METOPROLOL TAR 25 MG TAB PO SCH (09:00)
--- NOTE | 2019-09-18 12:07 | RAD REPORT ---
EXAM DESCRIPTION: NM - Rest Stress Cardiac Imaging - 09/18/2019 11:58 am CLINICAL HISTORY: Chest pain. COMPARISON: None. TECHNIQUE: The patient was administered approximately 10mCi of Tc 99m Sestamibi prior to resting SPE CT imaging of the heart. The patient was then administered approximately 30 mCi of Tc 99m Sestamibi f ollowing exercise or pharmacologic stress. Multiplanar SPECT images were reviewed. FINDINGS: There is uniformity of radiotracer uptake involving the entire left ventricular myocardiu m on rest and stress images. The left ventricular ejection fraction equals 49% IMPRESSION: Negative for a myocardial perfusion defect
[2019-09-18] MEDS ORDERED: SODIUM CHL 0.9% 1000 ML BAG ONE (12:17)
[2019-09-18 15:44] LABS: Absolute Lymphocytes (CBC) 3.1 K/uL (0.7-4.9); Basophils % 0.3 % (0-1.3); Hematocrit 47.6 % (39.6-49.0); Lymphocytes % 32.2 % (15.3-44.8); MPV 9.8 fL (7.6-11.3); RBC Red Blood Cell Count 5.72 M/uL (4.33-5.43)
--- NOTE | 2019-09-18 18:06 | CON ---
Date of Consultation: 09/18/2019 Reason For Consultation: Chest pain. History Of Present Illness: This is a 39-year-old male with a very strong history of coronary artery disease, father of heart attack in mid 40s, otherwise no other medical problems, presented with chest pain. It is in the lower portion of the chest in the sternal area. No radiation. Not relate d to exertion. No shortness of breath. No nausea, vomiting, or diarrhea. No other complaints. Berna n is not related to exertion. There is no fever. No cough. Past Medical History: None. Medications: None. Allergies: NO KNOWN DRUG ALLERGIES. Social History: He does not smoke or drink. Does not use any drugs. Family History: No premature coronary artery disease or cancer. Review of Systems: All systems were reviewed and they were negative except what mentioned in the HPI. Physical Examination: Vital Signs: Temperature is 97.9, pulse is 88, breathing at 18, blood pressure 136/77, saturating 96 % on room air. General: Pleasant young male, in no distress. Head and Neck: Pupils are equal, react to light. Intact eye movements. No JVD. No cervical lympha denopathy. Neck is supple. Thyroid is not enlarged. Lungs: Clear to auscultation bilaterally. No rhonchi, rales, or crackles. No accessory muscle use. Heart: Regular rate and rhythm. No extra sounds. Abdomen: Soft, nontender. Bowel sounds positive. No organomegaly. No masses or hernia. No rigidi ty or rebound. Extremities: No edema, clubbing, or cyanosis. Intact pulses. Skin: No rash. Neurologic: Alert, awake, oriented x3. No acute focal deficits appreciated. Investigations: Troponins are negative. Labs were reviewed and they were within normal. EKGs, no a cute abnormalities. Assessment And Plan: Chest pain. Strong family history. I agree with stress test and further plan accordingly. Meanwhile, use nitroglycerin sublingually as needed and a baby aspirin 81 mg daily. Thank you for the consultation. /RAN Voice ID: [id number] Report ID: [id number]
[2019-09-18 18:16] VITALS: BP 120/79; TEMP 97.4
--- NOTE | 2019-09-18 20:18 | P.DS ---
Admission Date: 09/17/19 Discharge Date: 09/18/19 Disposition: ROUTINE DISCHARGE Reason for Admission: Chest pain Consultations: Cardiology Procedures: None - Problems (1) Chest pain Status: Acute (2) Sinus tachycardia Status: Acute Brief History of Present Illness: 39-year-old gentleman with a history of acid reflux and hyperlipidemia presented emergency department with a complaint of chest pain of onset yesterday. Patient described intermittent chest pain, located in the sternal area, nonradiating, not related to exertion, worse with leaning forward, no relieving factors, associated with palpitation. Patient denies any cough or shortness of breath. His EKG in the emergency department demonstrated sinus tachycardia. Initial troponin is negative. Chest x-ray demonstrate a hazy appearance which could be secondary to atelectasis. The patient has a significant family history of coronary artery disease. His dad from a heart attack at the age of 49. He was here 1 year ago for chest pain, had a stress test and echocardiogram done as an outpatient which per patient were reported as normal. He states he has been diagnosed obstructive sleep apnea and uses CPAP during sleep. Hospital Course: Patient placed under observation, troponin trended came back negative. He was evaluated by cardiology-Dr. Hugo, exercise stress test with myocardial imaging was performed which did not show any perfusion defect to suggest ischemia. He was placed on aspirin. Acute coronary syndrome ruled out. Patient is deemed clinically stable for discharge. Vital Signs/Physical Exam: Temp Pulse Resp BP Pulse Ox 97.4 F 84 17 120/79 95 09/18/19 16:00 09/18/19 16:00 09/18/19 16:00 09/18/19 16:09/18/19 16:00 General: Alert, In no apparent distress, Oriented x3 HEENT: Mucous membr. moist/pink Neck: Supple, JVD not distended Respiratory: Clear to auscultation bilaterally Cardiovascular: No edema, Regular rate/rhythm, Normal S1 S2 Gastrointestinal: Normal bowel sounds, Soft and benign, No tenderness Musculoskeletal: No swelling, No tenderness Integumentary: No rashes Neurological: Normal speech, Normal strength at 5/5 x4 extr Laboratory Data at Discharge: WBC 9.6 K/uL (4.3-10.9) D 09/18/19 15:23 Hgb 16.2 g/dL (13.6-17.9) 09/18/19 15:23 Hct 47.6 % (39.6-49.0) 09/18/19 15:23 Plt Count 200 K/uL (152-406) 09/18/19 15:23 PT 11.7 SECONDS (9.5-12.5) 09/17/19 18:40 INR 0.99 09/17/19 18:40 Sodium 142 mmol/L (136-145) 09/18/19 03:18 Potassium 3.8 mmol/L (3.5-5.1) 09/18/19 03:18 BUN 18 mg/dL (7-18) 09/18/19 03:18 Creatinine 1.22 mg/dL (0.55-1.3) 09/18/19 03:18 Glucose 97 mg/dL (74-106) 09/18/19 03:18 Magnesium 2.2 mg/dL (1.8-2.4) 09/17/19 18:40 Total Bilirubin 0.4 mg/dL (0.2-1.0) 09/17/19 18:40 AST 22 U/L (15-37) 09/17/19 18:40 ALT 48 U/L (12-78) 09/17/19 18:40 Alkaline Phosphatase 55 U/L (45-117) 09/17/19 18:40 Troponin I < 0.02 ng/mL (0.0-0.045) 09/18/19 03:18 Triglycerides 271 mg/dL (<150) H 09/17/19 23:17 Cholesterol 134 mg/dL (<200) 09/17/19 23:17 HDL Cholesterol 29 mg/dL (40-60) L 09/17/19 23:17 Cholesterol/HDL Ratio 4.62 09/17/19 23:17 Home Medications: Aspirin [Adult Aspirin Regimen] 81 mg PO DAILY 10/27/18 Atorvastatin Calcium 20 mg PO DAILY 10/27/18 Metoprolol Tartrate [Lopressor*] 25 mg PO BID #60 tab 09/18/19 Nitroglycerin [Nitrostat*] 0.4 mg SL UD PRN #25 tab MDD 3 09/18/19 New Medications: Metoprolol Tartrate [Lopressor*] 25 mg PO BID #60 tab Nitroglycerin [Nitrostat*] 0.4 mg SL UD PRN #25 tab MDD 3 PRN Reason: Pain Scale 2-4 (Mild) Diet: AHA Activity: Ad marzena Followup: Chet Alvarez MD [ACTIVE - CAN ADMIT] - (2 weeks)
--- NOTE | 2019-09-19 13:48 | ECHO ---
HEIGHT: 5 ft 11 in WEIGHT: 183 lb 4 oz DATE OF STUDY: 09/18/[address]: mariposa inman 2-DIMENSIONAL: YES M.MODE: YES DOPPLER: YES COLOR FLOW: YES TDS: NO PORTABLE: NO DEFINITY: NO BUBBLE STUDY: NO DIAGNOSIS: CHEST PAIN, TACHYCARDIA CARDIAC HISTORY: CATHERIZATION: NO SURGERY: NO PROSTHETIC VALVE: NO PACEMAKER: NO MEASUREMENTS (cm) DIASTOLIC (NORMALS) SYSTOLIC (NORMALS) IVSd 0.9 (0.6-1.2) LA Diam 2.8 (1.9-4.0) LVEF 55-60% LVIDd 4.4 (3.5-5.7) LVIDs 3.0 (2.0-3.5) %FS 32% LVPWd 1.0 (0.6-1.2) Ao Diam 3.0 (2.0-3.7) 2 DIMENSIONAL ASSESSMENT: RIGHT ATRIUM: NORMAL LEFT ATRIUM: NORMAL RIGHT VENTRICLE: NORMAL LEFT VENTRICLE: NORMAL TRICUSPID VALVE: NORMAL MITRAL VALVE: NORMAL PULMONIC VALVE: NORMAL AORTIC VALVE: NORMAL PERICARDIAL EFFUSION: NONE AORTIC ROOT: NORMAL LEFT VENTRICULAR WALL MOTION: NORMAL. DOPPLER/COLOR FLOW: NORMAL. COMMENTS: NORMAL LEFT VENTRICULAR EJECTION FRACTION 55-60%. NORMAL LEFT VENTRICULAR WALL MOTION. NORMAL ECHO. TECHNOLOGIST: NITA MEADE
--- NOTE | 2019-09-20 13:04 | EKG ---
Test Date: 2019-09-17 Test Time: 17:15:56 Link Trainer Maintenance Man: SAMMIEL MEASUREMENT RESULTS: Intervals: Rate: 105 OH: 134 QRSD: 90 QT: 332 QTc: 438 [place]: P: 68 OH: 134 QRS: 50 T: 68 INTERPRETIVE STATEMENTS: Sinus tachycardia Nonspecific T wave abnormality Abnormal ECG Compared to ECG 10/26/2018 21:45:17 T-wave abnormality now present Sinus rhythm no longer present Electronically Signed On 09-20-19 13:04:15 CDT by Chet Alvarez
--- NOTE | 2019-09-22 14:31 | TREADMILL ---
70% H.R.: 126 85% H.R.: 153 90% H.R.: 162 100% H.R.: 180 DX: CHEST PAIN Date of Study: 09/18/2019 Ht: 5' 11 " Wt: 183 lb 4 oz Consulting Physician: MUNA MEDICATIONS: ASPIRIN, LOVENOX, LOPRESSOR, NITROSTAT HISTORY: 39 YEAR OLD MALE WITH COMPLAINTS OF CHEST PAIN. MEDICAL HISTORY OF HIGH CHOLESTEROL. PHYSICIAL EXAMINATION: RESTING B.P.: 130/94 RESTING H.R.: 94 RESTING EKG: PROTOCOL: HARVINDER CARDIOLITE EXERCISE TIME: 8:46 MAXIMUM HEART RATE: 173 96 % OF PREDICTED B.P. AT PEAK STRESS: 98/82 107/89 H.R. AT 1 MINUTE POST EXERCISE: 141 IMPRESSION: STRESS TEST STOPPED DUE TO TARGET HEART RATE REACHED PER PROTOCOL. CARDIOLITE INJECTED. SEE NUCLEAR MEDICINE REPORT. NO SUPRAVENTRICULAR TACHYCARDIA, VENTRICULAR TACHYCARIDA OR PREMATURE VENTRICULAR COMPLEXES NOTED. STARTED FLUIDS AT 11:20 DUE TO PATIENTS BLOOD PRESSURE AND SYMPTOMATIC STATES "CAN I LAY DOWN I FEEL DIZZY" RECEIVED 250 ml BOLUS OF NORMAL SALINE. NO ST-T CHANGES TO SUGGEST ISCHEMIA.
--- NOTE | 2019-09-22 14:49 | EDPHYS ---
Physician Documentation [facility] Name: Enrrique Sahni Age: 39 yrs Sex: Male : 1980 Arrival Date: 09/17/2019 Time: 17:06 Bed 7 Private MD: ED Physician Mendy Romero HPI: 09/16 20:36 This 39 yrs old Male presents to ER via Unassigned with complaints of ma2 Chest Pain, Breathing Difficulty. 20:36 The patient or guardian reports chest pain that is located primarily in the substernal ma2 area. Onset: gradually, 2 day(s) ago. Associated signs and symptoms: Pertinent negatives: cough, dizziness, lower extremity swelling, near syncope. The chest pain is described as crushing. Severity of pain: At its worst the pain was moderate in the emergency department the pain is unchanged. The patient has not experienced similar symptoms in the past. Historical: - Allergies: 17:11 No Known Allergies; ll1 - PMHx: 17:11 High Cholesterol; GERD; ll1 - PSHx: 17:11 None; ll1 - Immunization history:: Adult Immunizations up to date, Flu vaccine is not up to date. - Social history:: Smoking status: Patient denies any tobacco usage or history of. Patient/guardian denies using alcohol, street drugs, tobacco products, The patient lives with family. - Family history:: not pertinent. ROS: 20:36 Constitutional: Negative for fever, chills, and weight loss. ma2 20:36 All other systems are negative. Exam: 20:36 Constitutional: This is a well developed, well nourished patient who is awake, alert, ma2 and in no acute distress. ENT: Nares patent. No nasal discharge, no septal abnormalities noted. Tympanic membranes are normal and external auditory canals are clear. Oropharynx with no redness, swelling, or masses, exudates, or evidence of obstruction, uvula midline. Mucous membranes moist. Neck: Trachea midline, no thyromegaly or masses palpated, and no cervical lymphadenopathy. Supple, full range of motion without nuchal rigidity, or vertebral point tenderness. No Meningismus. Chest/axilla: Normal chest wall appearance and motion. Nontender with no deformity. No lesions are appreciated. Cardiovascular: Regular rate and rhythm with a normal S1 and S2. No gallops, murmurs, or rubs. Normal PMI, no JVD. No pulse deficits. Respiratory: Lungs have equal breath sounds bilaterally, clear to auscultation and percussion. No rales, rhonchi or wheezes noted. No increased work of breathing, no retractions or nasal flaring. Abdomen/GI: Soft, non-tender, with normal bowel sounds. No distension or tympany. No guarding or rebound. No evidence of tenderness throughout. Vital Signs: 17:09 BP 150 / 95; Pulse 100; Resp 18; Temp 98.0; Pulse Ox 99% ; Weight 82.1 kg; Height 5 ft. ll1 11 in. (180.34 cm); Pain 8/10; 19:24 BP 119 / 86; Pulse 91; Resp 18; Pulse Ox 96% on R/A; mg2 20:45 BP 125 / 90; Pulse 87; Resp 18; Pulse Ox 97% on R/A; mg2 21:56 BP 103 / 79; Pulse 92; Resp 18; Pulse Ox 96% on R/A; mg2 17:09 Body Mass Index 25.24 (82.10 kg, 180.34 cm) ll1 MDM: 18:27 Patient medically screened. ma2 20:36 Differential diagnosis: abnormal EKG, acute myocardial infarction, acute pericarditis, ma2 anxiety, coronary artery disease gastroesophageal reflux disease (GERD), stable angina, unstable angina. HEART Score: History: Moderately Suspicious (1), ECG: Non specific repolarization disturbance / LBTB / PM (1), Age: < or = 45 years (0), Risk Factors: > or = 3 Risk factors for atherosclerotic disease (2), Troponin: < or = 1 x Normal Limit (0). The patient was given aspirin in the Emergency Department. Data reviewed: vital signs, nurses notes. Counseling: I had a detailed discussion with the patient and/or guardian regarding: the historical points, exam findings, and any diagnostic results supporting the discharge/admit diagnosis, the presence of at least one elevated blood pressure reading (>120/80) during this emergency department visit, the need for outpatient follow up. 09/16 18: Order name: Basic Metabolic Panel; Complete Time: 19:24 il2 09/16 18:28 Order name: CBC with Diff; Complete Time: 19:24 ma2 09/16 18:28 Order name: LFT's; Complete Time: 19:24 ma2 09/16 18:28 Order name: Magnesium; Complete Time: 19:24 ma2 09/16 18:28 Order name: NT PRO-BNP; Complete Time: 19:24 ma2 09/16 18:28 Order name: PT-INR; Complete Time: 19:24 ma2 09/16 18:28 Order name: Troponin (emerg Dept Use Only); Complete Time: 19:24 ma2 09/16 18:28 Order name: XRAY Chest (1 view); Complete Time: 20:42 ma2 09/16 18:28 Order name: EKG; Complete Time: 18:29 ma2 09/16 18:28 Order name: Cardiac monitoring; Complete Time: 19:00 ma2 09/16 18:28 Order name: EKG - Nurse/Tech; Complete Time: 18:29 ma2 09/16 18:28 Order name: IV Saline Lock; Complete Time: 19:00 ma2 09/16 18:28 Order name: Labs collected and sent; Complete Time: 19:00 ma2 09/16 18:28 Order name: O2 Per Protocol; Complete Time: 19:00 ma2 09/16 18:28 Order name: O2 Sat Monitoring; Complete Time: 19:00 ma2 Administered Medications: 18:40 Drug: TORadol 30 mg Route: IVP; Site: right antecubital; sv 19:25 Follow up: Response: No adverse reaction mg2 21:26 Drug: Aspirin Chewable Tablet 324 mg Route: PO; mg2 21:57 Follow up: Response: No adverse reaction mg2 Disposition: 09/17/19 20:38 Hospitalization ordered by Andrews Medel for Observation. Preliminary diagnosis is Chest pain, unspecified. - Bed requested for Telemetry/MedSurg (observation). - Status is Observation. mg2 - Condition is Stable. - Problem is new. - Symptoms are unchanged. Signatures: Dispatcher [employer] Montserrat Fuentes RN RN sv Brissa Blanca RN RN tl1 Mendy Romero MD MD ma2 Balta Almonte RN RN mg2 Regina Hoskins RN RN ll1 Corrections: (The following items were deleted from the chart) 22:04 20:38 Hospitalization Ordered by Andrews Medel for Observation. Preliminary diagnosis tl1 is Chest pain, unspecified. Bed requested for Telemetry/MedSurg (observation). Status is Observation. Condition is Stable. Problem is new. Symptoms are unchanged. ma2 22:25 22:04 09/17/2019 20:38 Hospitalization Ordered by Andrews Medel for Observation. mg2 Preliminary diagnosis is Chest pain, unspecified. Bed requested for Telemetry/MedSurg (observation). Status is Observation. Condition is Stable. Problem is new. Symptoms are unchanged. tl1
--- NOTE | 2019-09-22 14:49 | ER ---
Nurse's Notes [facility] Name: Enrrique Sahni Age: 39 yrs Sex: Male : 1980 Arrival Date: 09/17/2019 Time: 17:06 Bed 7 Private MD: Diagnosis: Chest pain, unspecified Presentation: 09/16 17:09 Chief complaint: Patient states: Mid chest pain with SOB began today. No cough or ll1 fever. States he wants a covid test, was tested 2 days ago. Coronavirus screen: Proceed with normal triage. Patient denies a cough. Patient reports shortness of breath or difficulty breathing. Patient denies measured and/or subjective temperature greater than 100.4F prior to today's visit. Patient denies travel on a cruise ship or to a country the [facility] currently lists as an affected area. Patient denies contact with known and/or suspected case of COVID-19. Ebola Screen: Patient denies travel to an Ebola-affected area in the 21 days before illness onset. Initial Sepsis Screen: Does the patient meet any 2 criteria? HR > 90 bpm. No. Patient's initial sepsis screen is negative. Does the patient have a suspected source of infection? No. Patient's initial sepsis screen is negative. Risk Assessment: Do you want to hurt yourself or someone else? Patient reports no desire to harm self or others. Onset of symptoms was September 17, 2019. 17:09 Acuity: ADEN 3 ll1 17:09 Method Of Arrival: Ambulatory mg2 Historical: - Allergies: 17:11 No Known Allergies; ll1 - PMHx: 17:11 High Cholesterol; GERD; ll1 - PSHx: 17:11 None; ll1 - Immunization history:: Adult Immunizations up to date, Flu vaccine is not up to date. - Social history:: Smoking status: Patient denies any tobacco usage or history of. Patient/guardian denies using alcohol, street drugs, tobacco products, The patient lives with family. - Family history:: not pertinent. Screenin:40 Abuse screen: Denies threats or abuse. Denies injuries from another. Nutritional sv screening: No deficits noted. Tuberculosis screening: No symptoms or risk factors identified. Fall Risk None identified. Assessment: 18:40 General: Appears in no apparent distress. comfortable, well groomed, well developed, sv Behavior is calm, cooperative, appropriate for age. Pain: Complains of pain in mid-sternal area Pain does not radiate. Pain currently is 8 out of 10 on a pain scale. Pain began 1 day ago. Is intermittent. Neuro: Level of Consciousness is awake, alert, obeys commands, Oriented to person, place, time, situation, Moves all extremities. Full function Gait is steady, Speech is normal. Cardiovascular: Patient's skin is warm and dry. Respiratory: Airway is patent Respiratory effort is even, unlabored, Respiratory pattern is regular, symmetrical. Respiratory: Reports shortness of breath. Derm: Skin is pink, warm \T\ dry. 19:40 Reassessment: Patient appears in no apparent distress at this time. Patient and/or mg2 family updated on plan of care and expected duration. Pain level reassessed. Patient is alert, oriented x 3, equal unlabored respirations, skin warm/dry/pink. informed about the plan for admission. 20:50 Reassessment: Patient appears in no apparent distress at this time. Patient and/or mg2 family updated on plan of care and expected duration. Pain level reassessed. Patient is alert, oriented x 3, equal unlabored respirations, skin warm/dry/pink. 21:56 Reassessment: Patient appears in no apparent distress at this time. Patient and/or mg2 family updated on plan of care and expected duration. Pain level reassessed. Patient is alert, oriented x 3, equal unlabored respirations, skin warm/dry/pink. 22:16 Reassessment: report given to ALENA Miranda. jb4 Vital Signs: 17:09 BP 150 / 95; Pulse 100; Resp 18; Temp 98.0; Pulse Ox 99% ; Weight 82.1 kg; Height 5 ft. ll1 11 in. (180.34 cm); Pain 8/10; 19:24 BP 119 / 86; Pulse 91; Resp 18; Pulse Ox 96% on R/A; mg2 20:45 BP 125 / 90; Pulse 87; Resp 18; Pulse Ox 97% on R/A; mg2 21:56 BP 103 / 79; Pulse 92; Resp 18; Pulse Ox 96% on R/A; mg2 17:09 Body Mass Index 25.24 (82.10 kg, 180.34 cm) ll1 ED Course: 17:06 Patient arrived in ED. fj1 17:10 Triage completed. ll1 17:11 Arm band placed on Patient notified of wait time. ll1 17:19 EKG completed in triage. Results shown to MD. ll1 18:27 Mendy Romero MD is Attending Physician. ma2 18:29 Bambi Grimes RN is Primary Nurse. jl7 18:40 Patient has correct armband on for positive identification. Bed in low position. Call sv light in reach. carry in worker on. Pulse ox on. NIBP on. Door closed. Head of bed elevated. 18:40 Inserted saline lock: 20 gauge in right antecubital area, using aseptic technique. sv Blood collected. Flushed right antecubital with 5 ml normal saline. Patient maintains SpO2 saturation greater than 95% on room air. 19:02 Report given to Balta CARVAJAL and Braeden CARVAJAL. sv 19:17 XRAY Chest (1 view) In Process Unspecified. EDMS 20:38 Andrews Medel is Hospitalizing Provider. ma2 22:25 No provider procedures requiring assistance completed. Patient admitted, IV remains in mg2 place. Administered Medications: 18:40 Drug: TORadol 30 mg Route: IVP; Site: right antecubital; sv 19:25 Follow up: Response: No adverse reaction mg2 21:26 Drug: Aspirin Chewable Tablet 324 mg Route: PO; mg2 21:57 Follow up: Response: No adverse reaction mg2 Outcome: 20:38 Decision to Hospitalize by Provider. ma2 22:25 Admitted to Med/surg accompanied by tech, via wheelchair, room 229, with chart. mg2 22:25 Condition: stable 22:25 Instructed on the need for admit, Demonstrated understanding of instructions. 22:25 Patient left the ED. mg2 Signatures: Dispatcher [employer] EDIN Montserrat Cordoba RN RN Wallace Barajas, RN RN jb4 Bambi Grimes, ALENA RN jl7 Mendy Romero MD MD ms2 Balta Almonte RN RN mg2 Jorge A Gonsalez 1 Regina Hoskins RN RN ll1 Corrections: (The following items were deleted from the chart) 17:19 17:09 Chief complaint: Patient states: Mid chest pain with SOB began today. No cough or ll1 fever. ll1
== END 2019-09-18 17:03 | disposition home or self-care (01) ==
LOC: ER 17:02 → 2ND 22:18
PROVIDERS: ADMIT Internal Medicine; ATTEND Internal Medicine
DX: R07.9 Chest pain, unspecified (principal); R00.0 Tachycardia, unspecified; K21.9 Gastro-esophageal reflux disease without esophagitis; E78.5 Hyperlipidemia, unspecified; G47.33 Obstructive sleep apnea (adult) (pediatric)
CPT/HCPCS: 36415; 71045; 78452; 80048; 80061; 80076; 83735; 83880; 84443; 84484; 85025; 85610; 93005; 93017; 93306; 96374; 99285; A9500; G0378; J1650; J7030